=== PATIENT | male | born 1980 | race Caucasian/White ===

== ENCOUNTER 2024-12-30 15:40 | Emergency (ER) | payer OTHER, SELFPAY ==
[2024-12-30 15:43] VITALS: BP 175/113
[2024-12-30 16:14] LABS: Hematocrit 44.8 % (39.0-52.0); Hemoglobin 14.2 g/dL (13.0-18.0); Mean Corp Hgb Conc. 31.7 g/dL (33.0-37.0); Mean Corpuscular Volume 84.5 fL (80.0-94.0); Nucleated Red Blood Cells % 0 % (-); Platelet Count 299 10^3/uL (130-400); Red Cell Dist. Width 15.1 % (11.5-14.5)
[2024-12-30 16:15] LABS: ALT (SGPT) 25 U/L (0-50); AST (SGOT) 20 U/L (17-59); Albumin 4.3 g/dl (3.5-5.0); Alkaline Phosphatase 71 U/L (38-126); Blood Urea Nitrogen 15 mg/dl (9-20); Calcium 9.2 mg/dl (8.4-10.2); Carbon Dioxide 28 mmol/L (22-30); Chloride 102 mmol/L (98-107); Glucose 94 mg/dl (70-99); Lipase 76 U/L (23-300); Potassium 4.3 mmol/L (3.5-5.1); Sodium 135 mmol/L (135-145); Total Protein 8.4 g/dl (6.3-8.2); eGFR > 60.00
--- NOTE | 2024-12-30 18:24 | ED.GENMED ---
History of Present Illness
General
Chief Complaint: Abdominal Pain
Source: patient
Exam Limitations: none
Time Seen by Provider: 12/30/24 18:16
Nursing documentation reviewed up to this point in time: agreed with
History of Present Illness
History of Present Illness:
Patient to the emergency department with complaint of diffuse abdominal pain. States symptoms started in April, were intermittent, intolerable. States over the past month pain has begun to escalate. Now reports nausea, intermittent episodes of
vomiting, intermittent episodes of diarrhea. He denies fever or chills. Brought to the emergency department by family for evaluation
Past History
Past History
ED Past Medical History: None
ED Past Surgical History: None
Social History
Personal: Single
Living: alone
Employment: Other
Family History
Family History: Other
Review of Systems
Review of Systems
Allergies reviewed?: Yes
All Other Systems: ROS reviewed and negative except as documented in HPI and ROS
Constitutional: Reports no symptoms
EENT: Reports no symptoms
Respiratory: Reports no symptoms
Cardiac: Reports no symptoms
ABD/GI: Reports abdominal pain (Diffuse abdominal pain), nausea, vomiting and diarrhea
: Reports no symptoms
Musculoskeletal: Reports no symptoms
Skin: Reports no symptoms
Neurological: Reports no symptoms
Psychiatric: Reports no symptoms
Phy Exam
General Physical Exam
General Presentation: well appearing and mild distress
General age: appears stated age
General Skin: warm and dry
General Habitus: normal
General Mental: alert
Cardiovascular Exam
Cardiovascular Exam: regular rate/rhythm
Pulmonary Exam
Pulmonary Exam: lungs clear and no respiratory distress
Gastrointestinal Exam
Gastrointestinal Exam: normal bowel sounds, soft, no organomegaly, no pulsatile mass and non distended
Palpation: generalized: Mild tenderness
Musculoskeletal Exam
Musculoskeletal Exam: full ROM
Skin Exam
Skin Exam: normal color, warm/dry and no rash
Psychiatric Exam
Psychiatric Exam: normal mood/affect
Course
Orders/Labs/Results
Orders:
Orders
12/30/24 15:50
Complete Blood Count/With Diff Urgent
Comprehensive Metabolic Panel Urgent
Lipase Urgent
12/30/24 18:24
CT Abd/pelvis W Iv Cont Urgent
Comment:
Reason For Exam: diffuse abd. pain
0.9% Sodium Chloride 1000 ml [Nss] 1,000 ml IV BOLUS
12/30/24 20:33
Urinalysis Reflex To Culture Urgent
Date Specimen was Collected: 12/30/24
Time Specimen was Collected: 19:16
Urine Microscopic Reflex Cult Urgent
12/30/24 21:36
Dicyclomine [Bentyl] 10 mg PO NOW STA
Abnormal Lab Results
12/30/24 12/30/24
15:50 20:33
WBC 11.2 H 10^3/uL
(4.8-10.8)
MCH 26.8 L pg
(27.0-31.0)
MCHC 31.7 L g/dL
(33.0-37.0)
RDW 15.1 H %
(11.5-14.5)
Abs Immat Gran (auto) 0.1 H 10^3/uL
(0-0.05)
Absolute Neuts (auto) 7.7 H 10^3/uL
(1.4-6.5)
Absolute Monos (auto) 0.7 H 10^3/uL
(0.1-0.6)
Total Protein 8.4 H g/dl
(6.3-8.2)
Ur Occult Blood Reflex 3+ A
(Negative)
Urine RBC 16-20 A /HPF
(0-2)
Urine Bacteria (Reflex) Few A
(Negative)
Urine Albumin (Reflex) 2+ A
(Neg - Trace)
12/30/24 15:50
12/30/24 15:50
Vital Signs
Initial and Last Documented VS:
Initial Vital Signs
Temp Pulse Resp BP Pulse Ox
98.5 F 105 18 175/113 98
12/30/24 15:43 12/30/24 15:43 12/30/24 15:43 12/30/24 15:43 12/30/24 15:43
Last Documented Vital Signs
Temp Pulse Resp BP Pulse Ox
98.5 F 93 15 122/86 96
12/30/24 15:43 12/30/24 20:45 12/30/24 20:45 12/30/24 20:25 12/30/24 20:45
*Pulse Oximetry
SaO2: 98
Oxygen Mode of Delivery: Room air
Patient hypoxic: no
*Critical Care Note
Total Time (30-74mins, 75-104mins- exclusive of procedures): Not Applicable
Update Note
Update Note:
Patient to the emergency department for evaluation of diffuse abdominal pain. States he first noticed the pain back in April but feels that it has gotten worse over the past few weeks. Patient reports occasional episodes of vomiting and diarrhea.
He denies any fever or chills. Brought to the emergency department accompanied by his father for evaluation. He has a known pilonidal cyst. He has declined any treatment regarding the cyst. Vital signs are stable he remains afebrile. Labs
reviewed, WBC 11.2, CMP without concerning findings. UA negative for UTI. Abdominal CT was performed. No acute pathology of the abdomen or pelvis identified. Again the pilonidal cyst was identified as a rim-enhancing fluid collection in the
subcutaneous tissue of the back. He reports he has been dealing with this pilonidal cyst for many many years and does not wish to have it addressed. He was however given the number for general surgery and encouraged to follow-up in office. He was
also given instructions on signs and symptoms to return to the emergency department and he is agreeable to this plan.
ED Attending Note
-
Portions of this chart may have been created with voice recognition software.� Occasional wrong word or��sound alike� substitutions may have occurred due to the inherent limitations of voice recognition software.
Discharge Plan
Departure
Patient Disposition: Home (Routine Discharge)
Date of Disposition: 12/30/24
Time of Disposition: 21:37
Patient with high blood pressure during this ER visit?: No
Condition: Good
Covid-19: Not Applicable
Discharge Problem:
Abdominal pain
Instructions: Abdominal Pain
Prescriptions:
New
dicyclomine 10 mg capsule
10 mg PO TID PRN (Reason: abdominal pain) Qty: 30 0RF
No Action
HydrOXYZINE
Olanzapine
Referrals:
Noah Alexis MD [Active, Surgical]
Referral Note: Follow up for further evaluation/recommendations for your pilonidal cyst
NONE,* [Family Provider, Internal Medicine]
Christiano Gauthier DO [Active, Gastroenterology] - Call in 1-3 days for appt
Interventions
Interventions:
*Risk Screen - Suicide Last Done: 12/30/24 15:43
*General Assessment Last Done: 12/30/24 19:24
*Neglect/Abuse Screening Last Done: 12/30/24 19:24
*ED- Fall Risk Assessment Last Done: 12/30/24 19:24
*ED COVID-19 Vaccine History Last Done: 12/30/24 19:24
*ED Influenza Vaccine History Last Done: 12/30/24 19:24
*Nursing Disposition Last Done: 12/30/24 22:26
[facility]-Atjw[facility]-Eczarnhgof Assessment Last Done: 12/30/24 19:26
Discharge Date and Time
Discharge Date/Time: 12/30/24 22:27
Print Language: GREENLANDIC
[2024-12-30 19:15] VITALS: BP 133/93
[2024-12-30] MEDS: NSS IV (19:16)
[2024-12-30] MEDS: NSS 1000 IV (19:23)
[2024-12-30 19:25] VITALS: BMI 43.1
[2024-12-30 20:25] VITALS: BP 122/86
[2024-12-30 20:39] LABS: Urine Character Clear (Clear)
[2024-12-30 20:45] LABS: Urine Squamous Cell 16-20 /LPF (Few)
[2024-12-30 20:46] LABS: Urine White Cell 0-2 /HPF (0-5)
[2024-12-30 20:47] LABS: Urine Red Blood Cell 16-20 /HPF (0-2)
[2024-12-30] MEDS: BENTYL 10 MG PO (21:54)
== END 2024-12-30 22:27 | disposition home or self-care (01) ==
LOC: EMR 15:40
PROVIDERS: Nurse Practitioner; EMERGENCY PHYSICIAN Emergency Medicine
DX: R10.84 Generalized abdominal pain (principal)
CPT/HCPCS: 99284; 96360; 74177; 80053; 81003; 81015; 83690; 85025; Q9967